=== PATIENT | female | born 1955 | race Caucasian/White ===

== ENCOUNTER → 2017-01-05 | Outpatient (CLI) | payer BC ==
[~2017-01-05] MED LIST: CALCIUM500 MG PO; EVENING PRIMROSE; LEVOTHYROXINE PO; PREMARIN0.625 MG PO; TUMERIC
== END ==
LOC: MC.RAD 07:00
DX: Z12.31 Encounter for screening mammogram for malignant neoplasm of breast (principal)

== ENCOUNTER → 2017-03-17 | Outpatient (CLI) | payer OTHER, BC | LOC: COL.RAD 12:57 | DX: M48.02 Spinal stenosis, cervical region (principal); M50.222 Other cervical disc displacement at C5-C6 level; M89.38 Hypertrophy of bone, other site; Z98.890 Other specified postprocedural states; M51.36 Other intervertebral disc degeneration, lumbar region | CPT/HCPCS: A9585 ==

== ENCOUNTER 2017-05-09 07:55 | Outpatient (RCR) | payer OTHER | END 2017-06-22 | disposition home or self-care (01) | LOC: WSOH | DX: M50.30 Other cervical disc degeneration, unspecified cervical region (principal); M51.36 Other intervertebral disc degeneration, lumbar region; Z98.890 Other specified postprocedural states ==

== ENCOUNTER → 2017-09-06 | Outpatient (CLI) | payer BC | LOC: COL.RAD 15:51 | DX: S06.9X9A Unspecified intracranial injury with loss of consciousness of unspecified duration, initial encounter (principal); R41.82 Altered mental status, unspecified; R42 Dizziness and giddiness; W19.XXXA Unspecified fall, initial encounter ==

== ENCOUNTER → 2018-01-18 | Outpatient (CLI) | payer BC | LOC: COL.RAD 12:30 | DX: M99.71 Connective tissue and disc stenosis of intervertebral foramina of cervical region (principal); M50.11 Cervical disc disorder with radiculopathy, high cervical region | CPT/HCPCS: A9585 ==

== ENCOUNTER → 2018-11-06 | Outpatient (CLI) | payer BC | LOC: MC.RAD 07:30 | DX: Z12.31 Encounter for screening mammogram for malignant neoplasm of breast (principal); Z98.890 Other specified postprocedural states ==

== ENCOUNTER → 2020-01-29 | Outpatient (CLI) | payer BC | LOC: MC.RAD 09:19 | DX: Z12.31 Encounter for screening mammogram for malignant neoplasm of breast (principal); Z01.419 Encounter for gynecological examination (general) (routine) without abnormal findings; Z98.82 Breast implant status ==

== ENCOUNTER → 2021-01-27 | Outpatient (CLI) | payer BC | LOC: COL.PUL 06:57 | DX: R06.00 Dyspnea, unspecified (principal) ==

== ENCOUNTER → 2021-04-27 | Outpatient (CLI) | payer BC | LOC: MC.RAD 07:41 | DX: Z12.31 Encounter for screening mammogram for malignant neoplasm of breast (principal) ==

== ENCOUNTER → 2021-05-19 | Outpatient (CLI) | payer BC | LOC: COL.PUL 09:30 | DX: R06.02 Shortness of breath (principal) | CPT/HCPCS: J7674 ==

== ENCOUNTER → 2022-08-12 | Outpatient (CLI) | payer BC | LOC: MC.RAD 11:33 | DX: Z12.31 Encounter for screening mammogram for malignant neoplasm of breast (principal); N64.89 Other specified disorders of breast ==

== ENCOUNTER → 2023-09-20 | Outpatient (CLI) | payer BC | LOC: MC.RAD 08:30 | DX: Z12.31 Encounter for screening mammogram for malignant neoplasm of breast (principal) ==